=== PATIENT | female | born 1975 | race Asian ===

== ENCOUNTER 2025-02-20 07:59 | Emergency (ER) | payer OTHER, SELFPAY ==
[2025-02-20 08:08] VITALS: BP 124/81
--- NOTE | 2025-02-20 08:54 | ED.GENMED ---
History of Present Illness
General
Chief Complaint: Urinary Symptoms
Time Seen by Provider: 02/20/25 08:14
History of Present Illness
History of Present Illness:
Patient is a 49-year-old woman with history of recurrent UTIs presenting to the emergency department with urinary problems. Patient states that about 4 days ago she developed foul-smelling urine cloudy urine urinary frequency and called her
urologist who started her on Macrobid 3 days ago. Her symptoms have been improving. However over the weekend she developed some nausea and hematuria. No clots. No history of kidney stones. No vomiting. No diarrhea. This is never happened to
her before. She does state that she has been having some soreness to her right upper abdomen and right flank. She initially attributed to musculoskeletal pain as she was injured there a few weeks ago. She does state it feels like it is in the
lower right ribs. No vaginal bleeding. Her last period was a few weeks ago.
Phy Exam
Physical Exam
Physical Exam:
GENERAL: in no acute distress
HEENT: normocephalic, extraocular movements intact, moist oral mucosa
NECK: normal inspection
RESPIRATORY: no respiratory distress, clear to auscultation bilaterally
CARDIOVASCULAR: regular rate and rhythm
ABDOMEN/: soft, non-distended, mild lower/right flank pain, tenderness over right lower anterior ribs, no rebound or guarding
EXTREMITIES: non-tender, no edema/swelling
NEUROLOGIC: awake and alert, moves all extremities
SKIN: warm
Course
Orders/Labs/Results
Orders:
Orders
02/20/25 08:47
CT Abd/pel Without Iv Or Oral Urgent
Comment:
Reason For Exam: r flank pain, hematuria
Ketorolac [Toradol] 15 mg IM NOW STA
02/20/25 08:48
Test Result ONCE
02/20/25 08:54
Beta Hcg Urine Qualitative Screen [HCG, Urine Qualitative Screen] Urgent
Date Specimen was Collected: 02/20/25
Time Specimen was Collected: 08:50
Complete Blood Count/With Diff Urgent
Comprehensive Metabolic Panel Urgent
Urinalysis Reflex To Culture Urgent
Date Specimen was Collected: 02/20/25
Time Specimen was Collected: 08:50
Urine Microscopic Reflex Cult Urgent
Urine Culture Urgent
[facility] Source: U
Specimen Description:
Date Specimen was Collected: 02/20/25
Time Specimen was Collected: 08:50
02/20/25 10:06
Pelvis & Transvaginal US [US Pelvis W Transvag Combined] Urgent
Comment:
Reason For Exam: enlarged uterus, bleeding
Abnormal Lab Results
02/20/25
08:54
Hgb 9.8 L g/dL
(12.0-16.0)
Hct 32.3 L %
(37.0-47.0)
MCV 72.6 L fL
(81.0-99.0)
MCH 22.0 L pg
(27.0-31.0)
MCHC 30.3 L g/dL
(33.0-37.0)
RDW 16.4 H %
(11.5-14.5)
Chloride 109 H mmol/L
(98-107)
Glucose 106 H mg/dl
(70-99)
Ur Occult Blood Reflex 4+ A
(Negative)
Leukocyte Esterase Rfl 1+ A
(Negative)
Urine RBC 7-10 A /HPF
(0-2)
Urine WBC (Reflex) 11-15 A /HPF
(0-5)
Urine Bacteria (Reflex) Many A
(Negative)
02/20/25 08:54
02/20/25 08:54
Vital Signs
Initial and Last Documented VS:
Initial Vital Signs
Temp Pulse Resp BP Pulse Ox
98.0 F 85 16 124/81 98
02/20/25 08:08 02/20/25 08:08 02/20/25 08:08 02/20/25 08:08 02/20/25 08:08
Last Documented Vital Signs
Temp Pulse Resp BP Pulse Ox
98.0 F 67 18 119/77 100
02/20/25 08:08 02/20/25 11:40 02/20/25 11:40 02/20/25 11:40 02/20/25 11:40
MDM/Problems Addressed
Differential Diagnosis Includes:
Patient is a 49-year-old woman with history of recurrent UTIs presenting to the emergency department with urinary symptoms that are improving but now with hematuria and right flank pain. On arrival patient is afebrile. She does have mild
tenderness to the right lower quadrant and right flank. No vaginal symptoms. Concern for UTI versus kidney stone. History exam less likely to suggest ovarian pathology or STI. Will proceed with basic blood work urinalysis CT scan and Toradol.
*Critical Care Note
Total Time (30-74mins, 75-104mins- exclusive of procedures): Not Applicable
Update Note
Update Note:
Blood work does show hemoglobin of 9.8. CT scan with no kidney stones or fractured ribs but did note an enlarged uterus. Patient does state that she is aware of this as she was diagnosed with endometriosis/fibroids and is following up with
gynecology at [place]. 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 She also notes that she has been having intermittent vaginal bleeding. After decision making we will proceed with ultrasound for further evaluation.
Ultrasound notable for enlarged uterus with no obvious masses. Urine is difficult to interpret given the squamous cells however given that clinically patient is feeling better and is already on antibiotics we will hold off on changing treatment.
Will discharge at this time. Patient will follow-up with gynecology regarding the enlarged uterus and low hemoglobin. Discussed pain control regarding the rib contusion. Strict return precautions given including fevers worsening bleeding or pain
or other symptoms. Will discharge at this time.
ED Attending Note
-
Portions of this chart may have been created with voice recognition software.� Occasional wrong word or��sound alike� substitutions may have occurred due to the inherent limitations of voice recognition software.
Discharge Plan
Departure
Patient Disposition: Home (Routine Discharge)
Date of Disposition: 02/20/25
Time of Disposition: 11:53
Patient with high blood pressure during this ER visit?: No
Discharge Problem:
Bruised ribs, Enlarged uterus
Instructions: Rib fracture or bruised rib - ED discharge instructions
Referrals:
UNKNOWN - PT DOES,NOT KNOW [Family Provider]
Julieth Sewell MD [Active, Gynecology] - Call in 1-3 days for appt
Activity Restrictions/Additional Instructions:
You were seen in the Emergency Department today for urinary problems and pain in your ribs. While you were here we performed blood work, your hemoglobin was slightly low. This could be related to the intermittent bleeding you have been having.
Please make sure you follow-up with gynecology. Please continue take your antibiotics for your urine infection. You may take Motrin/Tylenol for the pain in your ribs.
We would like for you to follow up with your primary care physician for further evaluation. If you experience fever, worsening of your symptoms, or develop any other new or concerning symptoms, please return to the Emergency Department immediately.
Please see the attached sheet for additional information.
Interventions
Interventions:
*Risk Screen - Suicide Last Done: 02/20/25 08:08
*Neglect/Abuse Screening Last Done: 02/20/25 08:08
*ED- Fall Risk Assessment Last Done: 02/20/25 09:19
*ED COVID-19 Vaccine History Last Done: 02/20/25 09:19
ED-Female Genitourinary Assessment Last Done: 02/20/25 08:46
Discharge Date and Time
Print Language: [place] CITIZ[place]
[2025-02-20] MEDS: TORADOL 15 MG IM (08:58)
[2025-02-20 09:10] LABS: Urine Albumin Negative (Neg - Trace); Urine Bilirubin Negative (Negative); Urine Character Clear (Clear); Urine Color Yellow; Urine Glucose Negative (Negative); Urine Ketone Negative (Negative); Urine Leukocyte 1+ (Negative); Urine Nitrite Negative (Negative); Urine Occult Blood 4+ (Negative); Urine Urobilinogen Negative (Neg - 1+)
[2025-02-20 09:11] LABS: % Basophils 0.4 % (0-2); % Immature Granulocytes 0.2 % (0-0.5); % Lymphocytes 27.5 % (20.5-51.1); % Monocytes 6.6 % (1.7-9.3); % Neutrophils 62.3 % (42.2-75.2); Absolute Eosinophils 0.2 10^3/uL (0-0.7); Absolute Lymphocytes 1.5 10^3/uL (1.2-3.4); Absolute Monocytes 0.4 10^3/uL (0.1-0.6); Absolute Neutrophils 3.4 10^3/uL (1.4-6.5); Hematocrit 32.3 % (37.0-47.0); Hemoglobin 9.8 g/dL (12.0-16.0); Mean Corp Hgb Conc. 30.3 g/dL (33.0-37.0); Mean Corpuscular Volume 72.6 fL (81.0-99.0); Nucleated Red Blood Cells % 0 %; Platelet Count 207 10^3/uL (130-400); Red Blood Cell Count 4.45 10^6/uL (4.20-5.40); Red Cell Dist. Width 16.4 % (11.5-14.5); White Blood Cell Count 5.4 10^3/uL (4.8-10.8)
[2025-02-20 09:14] LABS: HCG, Urine Qualitative Screen Negative
[2025-02-20 09:19] LABS: Urine Mucus Many; Urine Squamous Cell >30 /LPF (Few)
[2025-02-20 09:20] LABS: Urine Amorphous Seen
[2025-02-20 09:31] LABS: Urine Bacteria Many (Negative)
[2025-02-20 09:42] LABS: ALT (SGPT) 13 U/L (0-35); AST (SGOT) 16 U/L (14-36); Alkaline Phosphatase 71 U/L (38-126); Blood Urea Nitrogen 14 mg/dl (7-17); Carbon Dioxide 25 mmol/L (22-30); Chloride 109 mmol/L (98-107); Glucose 106 mg/dl (70-99); Potassium 4.1 mmol/L (3.5-5.1); Sodium 139 mmol/L (135-145); Total Bilirubin 0.6 mg/dl (0.2-1.3); eGFR > 60.00
[2025-02-20 11:40] VITALS: BP 119/77
== END 2025-02-20 12:08 | disposition home or self-care (01) ==
LOC: EMR 07:59
PROVIDERS: EMERGENCY PHYSICIAN Student in an Organized Health Care Education/Training Program
DX: S20.229A Contusion of unspecified back wall of thorax, initial encounter (principal); X58.XXXA Exposure to other specified factors, initial encounter; N85.2 Hypertrophy of uterus; R10.31 Right lower quadrant pain; Z87.440 Personal history of urinary (tract) infections
CPT/HCPCS: 99284; 96372; 74176; 76830; 76856; 80053; 81003; 81015; 81025; 85025; 87077; 87086